=== PATIENT | male | born 1990 | race African-American/Black ===

== ENCOUNTER 2025-04-16 10:56 | Emergency (ER) | payer OTHER ==
[~2025-04-16] VITALS: Ht 175.3 cm; Wt 84.8 kg
[2025-04-16] MEDS: KETOROLAC 60 MG/2 ML VIAL IM ONE (15:05)
[2025-04-16 15:33] VITALS: BP 138/94; TEMP 97.8; O2SAT 100
== END 2025-04-16 15:34 | disposition home or self-care (01) ==
LOC: M ED 10:56
DX: R51.9 Headache, unspecified (principal); B34.9 Viral infection, unspecified
CPT/HCPCS: 87486; 87581; 87633; 87798; 96372; 99283; J1885